=== PATIENT | female | born 1940 | race Caucasian/White ===

== ENCOUNTER → 2018-01-25 | Outpatient (CLI) | payer OTHER, MEDICARE ==
[~2018-01-25] MED LIST: ALENDRONATE SOD70 MG PO; AMLODIPINE BESYL5 MG PO; CHILDREN'S ASPIRIN PO; FENOFIBRATE145 MG PO; FUROSEMIDE40 MG PO; GABAPENTIN300 MG PO; GLIPIZIDE5 MG PO; JANUMET 50-1,01 EACH PO; KOMBIGLYZE XR1 EAC2 PO; LANTUS100 UNITS/ SQ; LEVOTHYROXINE125 MCG PO; METOPROLOL SUCC50 MG PO; NABUMETONE750 MG PO; OMEPRAZOLE40 MG PO; [UNRECOGNIZED DRUG - OTHER] PO
[2018-01-25 15:50] LABS: BASOPHILS # (AUTO) 0.1 (0.0-0.1); BASOPHILS % 0.9 % (0.0-1.0); EOSINOPHILS # (AUTO) 0.1 (0.0-0.4); EOSINOPHILS % 0.5 % (0.0-6.0); HEMATOCRIT 39.4 % (34.2-44.1); HEMOGLOBIN 13.7 g/dL (12.0-16.0); LYMPHOCYTES # (AUTO) 1.4 (1.0-3.2); LYMPHOCYTES % 11.7 % (18.0-39.1); MEAN CORPUSCULAR HEMOGLOBIN 28.4 pg (28-32); MEAN CORPUSCULAR HGB CONC 34.8 g/dL (31-35); MEAN CORPUSCULAR VOLUME 81.6 fL (81-99); MONOCYTES % 8.3 % (4.4-11.3); NEUTROPHILS # (AUTO) 8.4 (2.1-6.9); NEUTROPHILS % 69.1 % (38.7-80.0); PLATELET COUNT 220 x10e3/uL (140-360); RED BLOOD COUNT 4.83 x10e6/uL (3.6-5.1)
--- OUTSIDE RECORDS SUMMARY | 2018-01-26 07:36 | XMS REPORT | Summary of Care ---
Author Author Namita Gomez M.A. 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) Status: Active Obstructive sleep apnea (327.23, G47.33) Status: Active BPPV (benign paroxysmal positional vertigo) (386.11, H81.10) Status: Active Tongue pain (529.6, K14.6) Status: Active Post-nasal drip (784.91, R09.82) Status: Active Limb pain (729.5, M79.609) Status: Active Acute back pain with sciatica (724.3, M54.40) Status: Active Medications Name Dates Details Tricor TABS Active Cristian Low Dose 81 MG Oral Tablet Chewable * Refills: 0 Active GlipiZIDE 5 MG Oral Tablet * Refills: 0 Active AmLODIPine Besylate 5 MG Oral Tablet * Refills: 0 Active Lantus SOLN * Refills: 0 Active Levothyroxine Sodium 125 MCG Oral Tablet * Refills: 0 Active Metoprolol Tartrate 50 MG Oral Tablet * Refills: 0 Active Janumet 50-1000 MG Oral Tablet * Refills: 0 Active Dexamethasone 0.1 % SOLN * Refills: 0 Active Flonase SUSP * Refills: 0 Active Mometasone Furoate SUSP * Refills: 0 Active Gabapentin 300 MG Oral Capsule TAKE 1 CAPSULE 3 TIMES DAILY * Quantity: 90 Refills: 1 GISELLE ALLEN M.D. * Start : 14-Dec-2016 Active Fluticasone Propionate 50 MCG/ACT Nasal Suspension INSTILL 2 SPRAYS IN EACH NOSTRIL EVERY DAY * Quantity: 1 Refills: 6 GISELLE ALLEN M.D. * Start : 27-Jun-2017 Active 9.9 ML Bottle Allergies and Adverse Reactions Name Dates Details Codeine Derivatives (Allergy) Status: Active Darvocet-N 50 TABS (Allergy) Status: Active Keflex TABS (Allergy) Status: Active sevoflurane (Allergy) Status: Active Singulair (Allergy) Status: Active tramadol (Allergy) Status: Active Past Medical History Name Dates Details History of arthritis (V13.4, Z87.39) Status: Resolved History of Chronic fatigue (780.79, R53.82) Status: Resolved History of Depressive disorder (311, F32.9) Status: Resolved History of diabetes mellitus (V12.29, Z86.39) Status: Resolved History of hypertension (V12.59, Z86.79) Status: Resolved History of thyroid disease (V12.29, Z86.39) Status: Resolved Procedures Procedure Dates Details [U] XRAY TIBIA FIBULA 2 VWS RIGHT [id number] Date: 18-Oct-2017 History of Bladder Surgery Completed History of Rotator Cuff Repair Completed History of Hernia Repair Completed Immunization Name Dates Details Immunizations not documented Family History Name Dates Details Family history of Allergy (995.3, T78.40XA) Comments: Family History Status: Active Social History Name Dates Details - Status: Name Dates Details Never smoker Vital Signs Date Test Result Details [id number] Height 59 in Status: Weight 158 lb Status: Body Mass Index Calculated 31.91 kg/m2 Status: Body Surface Area Calculated 1.67 m2 Status: Results Date Description Value Details [id number] [U] XRAY TIBIA FIBULA 2 VWS RIGHT [id number] XR TIBIA FIBULA 2 VWS RIGHT Images acquired, not reported on this accession number. [id number] [U] XRAY SPINE LUMBOSACRAL 2 OR 3 VWS [id number] XR SPINE LUMBOSACRAL 2 OR 3 VWS Images acquired, not reported on this accession number. Plan of Care Name Dates Details Planned Observations Planned Goals not documented Planned Encounters Pain Management Referral Appointment; MAHNAZ HENDERSON M.D. On: 28-Oct-2017 14:00 Instructions Name Dates Details Instructions not documented Encounters Appointment; GISELLE ALLEN M.D. Encounter Diagnosis: Problem not documented On: 26-Oct-2016 8:15 Appointment; GISELLE ALLEN M.D. Encounter Diagnosis: Problem not documented On: 12-Nov-2016 13:30 Appointment; MAHNAZ HENDERSON M.D. Encounter Diagnosis: Problem not documented On: 19-Oct-2017 10:15 Appointment; MAHNAZ HENDERSON M.D. Encounter Diagnosis: Problem not documented On: 28-Oct-2017 14:00
== END ==
LOC: RAD 05:00 → OR 01-26 07:32 → EDSTATUS 01-26 08:30
PROVIDERS: ATTEND Internal Medicine Gastroenterology
DX: Z01.818 Encounter for other preprocedural examination (principal); Z53.8 Procedure and treatment not carried out for other reasons; R73.9 Hyperglycemia, unspecified
CPT/HCPCS: 36415; 85025; 93005

== ENCOUNTER 2018-01-26 08:03 | Emergency (ER) | payer OTHER, MEDICARE ==
[~2018-01-26] VITALS: Ht 152.4 cm; Wt 64.0 kg
[2018-01-26] MEDS ORDERED: SODIUM CHLORIDE 0.9% 1000ML 1,000 ML IV ONE (08:15)
[2018-01-26] MEDS ORDERED: INSULIN REGULAR, HUMAN 100 UNIT/1 ML 3ML VIAL IV ONE (08:30)
[2018-01-26] MEDS ORDERED: ENALAPRILAT IV INJ 1.25 MG/ML VIAL IV STA (08:37)
[2018-01-26] MEDS ORDERED: KETOROLAC TROMETHAMINE 30 MG/ML VIAL IV STA (08:37)
[2018-01-26 08:51] LABS: ANION GAP 19.3 mmol/L (8-16); BLOOD UREA NITROGEN 18 mg/dL (7-26); BUN/CREATININE RATIO 22 (6-25); CALCIUM 9.5 mg/dL (8.4-10.2); CARBON DIOXIDE 21 mmol/L (22-29); CHLORIDE 98 mmol/L (98-107); CREATININE, SERUM 0.82 mg/dL (0.57-1.11); EST GLOMERULAR FILTRATION RATE > 60 ML/MIN (60-); POTASSIUM 4.3 mmol/L (3.5-5.1); SODIUM 134 mmol/L (136-145)
[2018-01-26 08:53] LABS: GLUCOSE 527 mg/dL (74-118)
--- NOTE | 2018-01-26 10:06 | Diagnostic Imaging Report ---
PROCEDURE:HIP RIGHT 2-3 VW (+/- PELVIS) TECHNIQUE:AP pelvis and single cone-down views of the right hip. INDICATION:Pain without specific mention of trauma COMPARISON:None. FINDINGS:Joint space narrowing of both hips is present. No lytic or blastic process identified. No fracture or dislocation. There is vascular calcification. Pelvic phleboliths are present. CONCLUSION:Joint space narrowing of both hips. Tyler Salcido D.O. Dictated by: Tyler Salcido D.O. on 01/26/2018 at 10:08 Electronically approved by: Tyler Salcido D.O. on 01/26/2018 at 10:08
== END 2018-01-26 10:54 | disposition home or self-care (01) ==
LOC: ER 08:10
DX: E11.65 Type 2 diabetes mellitus with hyperglycemia (principal); M16.0 Bilateral primary osteoarthritis of hip; M47.816 Spondylosis without myelopathy or radiculopathy, lumbar region; I10 Essential (primary) hypertension; E03.9 Hypothyroidism, unspecified; I25.10 Atherosclerotic heart disease of native coronary artery without angina pectoris; K21.9 Gastro-esophageal reflux disease without esophagitis; K44.9 Diaphragmatic hernia without obstruction or gangrene; M54.9 Dorsalgia, unspecified; G89.29 Other chronic pain; R06.81 Apnea, not elsewhere classified; H91.93 Unspecified hearing loss, bilateral; Z85.118 Personal history of other malignant neoplasm of bronchus and lung; Z95.1 Presence of aortocoronary bypass graft; Z79.82 Long term (current) use of aspirin; Z79.4 Long term (current) use of insulin
CPT/HCPCS: 36415; 73502; 80048; 82948; 99284; J1885; J7030

== ENCOUNTER → 2018-02-02 | Day surgery (SDC) | payer OTHER, MEDICARE ==
[~2018-02-02] MED LIST changes: +FENTANYL CITRATE/PF 100MCG/2 ML INJ ONE; +MIDAZOLAM HCL 2 MG/2 ML VIAL ONE; +PROPOFOL IV EMULSION 10 MG/ML 50 ML VIAL ONE
--- OUTSIDE RECORDS SUMMARY | 2018-02-02 06:04 | XMS REPORT | Continuity of Care Document ---
Author Author [facility] Organization [facility] Address [address] [place] [address] [place] [address] Phone Unavailable Care Team Providers Care Crisis Clinician Name Role Phone NO, PCP PCP Unavailable Insurance Providers Guarantor Quan Fernandez Address [address] [place] [address] Email PTDECLINED Payer [employer] H[employer] Policy Number [id number] Subscriber's Name Quan Fernandez Relationship 18 Self / Same As Patient Group Number [id number] Group Name [employer] Effective Date 11 Payer Medicare A & B Policy Number [id number] Subscriber's Name Quan Fernandez Relationship 18 Self / Same As Patient Group Number [id number] Group Name [employer] Effective Date 07 Advance Directives Directive Response Recorded Date/Time Does the patient have an advance directive? Yes 06/10/14 10:09am If yes, is advance directive on file with [facility]? No 05/01/08 11:17am If not on file with [facility] will patient provide a copy? Yes 01/25/18 2:19pm Problems No problem information available. Medications Current Home Medications Medication Dose Units Route Directions Days Qty Instructions Start Date Alendronate Sodium 70 Mg Tablet 70 Mg Oral Weekly Amlodipine Besylate 5 Mg Tablet 5 Mg Oral Daily 30 Tab Children's Aspirin 81 Mg Oral Daily Fenofibrate Nanocrystallized (Fenofibrate) 145 Mg Tablet 1 Tab Oral Daily Furosemide 40 Mg Tablet 20 Mg Oral Daily 30 Tab Gabapentin 300 Mg Capsule 300 Mg Oral Three Times A Day 60 Cap Glipizide 5 Mg Tablet 5 Mg Oral Daily Insulin Glargine (Lantus) 100 Units/Ml Ml 36 Units Sub-Q Daily Levothyroxine Sodium 125 Mcg Tablet 137 Mcg Oral Daily Metoprolol Succinate 50 Mg Tab.er.24h 50 Mg Oral Twice A Day Nabumetone 750 Mg Tablet 1 Tab Oral Twice A Day Omeprazole 40 Mg Capsule.dr 40 Mg Oral Twice A Day Sitagliptin Phos/Metformin Hcl (Janumet 50-1,000 Mg Tablet) 1 Each Tablet 1 Tab Oral Twice A Day Past Home Medications Medication Directions Ordered Status Saxagliptin Hcl/Metformin Hcl (Kombiglyze Xr 2.5-1,000 Mg Tab) 1 Each Tbmp.24hr , 2.5-1000 Mg Oral Daily Discontinued Tricore , Oral Discontinued Social History No social history information available. Hospital Discharge Instructions No hospital discharge instruction information available. Plan of Care Discharge Date 01/26/18 10:54am Disposition HOME, SELF-CARE Condition at Discharge Stable Instructions/Education Provided Hyperglycemia Forms Provided Work/School Excuse Prescriptions See Medication Section Referrals SNEHA COPELAND MD Address: [address] [place] [id number] KERRY GARNICA MD Address: [address] [place] [id number] Additional Instructions/Education follow up with pcp take home meds as directed call dr. Garnica to reschedule EGD Functional Status No functional status information available. Allergies, Adverse Reactions, Alerts Allergen Type Severity Reaction Status Last Updated Codeine Allergy Intermediate HYPOTENTION Active 06/21/14 Cephalexin Allergy Mild RASH Active 06/21/14 Tramadol Adverse Reaction Mild DIZZINESS, N/V Active 06/24/14 Levofloxacin Allergy Severe CAN'T BREATHE Active 06/24/14 DARVOCET Adverse Reaction Mild DIZZINESS, N/V Active 06/24/14 SINGULAR Allergy Severe TONGUE SWELLS, CAN'T SWALLOW, CAN'T BREATH Active 06/24/14 Immunizations No immunization information available. Vital Signs Acute Vital Signs Vital Response Date/Time Height 5 ft 0 in 01/26/2018 8:06am Weight 141 lb 01/26/2018 8:06am Body Mass Index 27.5 kg/m^2 01/26/2018 8:06am Results Laboratory Results Test Name Result Units Flags Reference Collection Date/Time Result Date/ Time Comments White Blood Count 12.12 x10e3/uL H 4.8-10.8 01/25/2018 3:43pm 2017 3:51pm Red Blood Count 4.83 x10e6/uL 3.6-5.1 01/25/2018 3:43pm 01/25/2018 3: 51pm Hemoglobin 13.7 g/dL 12.0-16.0 01/25/2018 3:43pm 01/25/2018 3:51pm Hematocrit 39.4 % 34.2-44.1 01/25/2018 3:43pm 01/25/2018 3:51pm Mean Corpuscular Volume 81.6 fL 81-99 01/25/2018 3:43pm 01/25/2018 3: 51pm Mean Corpuscular Hemoglobin 28.4 pg 28-32 01/25/2018 3:43pm 01/25/2018 3:51pm Mean Corpuscular Hemoglobin Concent 34.8 g/dL 31-35 01/25/2018 3:43pm 01/25/2018 3:51pm Red Cell Distribution Width 15.0 % H 11.7-14.4 01/25/2018 3:43pm 2017 3:51pm Platelet Count 220 x10e3/uL 140-360 01/25/2018 3:43pm 01/25/2018 3: 51pm Neutrophils (%) (Auto) 69.1 % 38.7-80.0 01/25/2018 3:43pm 01/25/2018 3: 51pm Lymphocytes (%) (Auto) 11.7 % L 18.0-39.1 01/25/2018 3:43pm 01/25/2018 3 :51pm Monocytes (%) (Auto) 8.3 % 4.4-11.3 01/25/2018 3:43pm 01/25/2018 3: 51pm Eosinophils (%) (Auto) 0.5 % 0.0-6.0 01/25/2018 3:43pm 01/25/2018 3: 51pm Basophils (%) (Auto) 0.9 % 0.0-1.0 01/25/2018 3:43pm 01/25/2018 3:51pm IM GRANULOCYTES % 9.5 % H 0.0-1.0 01/25/2018 3:43pm 01/25/2018 3:51pm Neutrophils # (Auto) 8.4 H 2.1-6.9 01/25/2018 3:43pm 01/25/2018 3: 51pm Lymphocytes # (Auto) 1.4 1.0-3.2 01/25/2018 3:43pm 01/25/2018 3:51pm Monocytes # (Auto) 1.0 H 0.2-0.8 01/25/2018 3:43pm 01/25/2018 3:51pm Eosinophils # (Auto) 0.1 0.0-0.4 01/25/2018 3:43pm 01/25/2018 3:51pm Basophils # (Auto) 0.1 0.0-0.1 01/25/2018 3:43pm 01/25/2018 3:51pm Absolute Immature Granulocyte (auto 1.15 x10e3/uL H 0-0.1 01/25/2018 3: 43pm 01/25/2018 3:51pm Sodium Level 134 mmol/L L 136-145 01/26/2018 8:20am 01/26/2018 8:53am Potassium Level 4.3 mmol/L 3.5-5.1 01/26/2018 8:2001/26/2018 8:53am Chloride Level 98 mmol/L 98-107 01/26/2018 8:2001/26/2018 8:53am Carbon Dioxide Level 21 mmol/L L 22-29 01/26/2018 8:2001/26/2018 8: 53am Anion Gap 19.3 mmol/L H 8-16 01/26/2018 8:20am 01/26/2018 8:53am Blood Urea Nitrogen 18 mg/dL 7-26 01/26/2018 8:2001/26/2018 8:53am Creatinine 0.82 mg/dL 0.57-1.11 01/26/2018 8:2001/26/2018 8:53am BUN/Creatinine Ratio 22 6-25 01/26/2018 8:20am 01/26/2018 8:53am Estimat Glomerular Filtration Rate > 60 ML/MIN 60- 01/26/2018 8:20am 8:53am Ranges were taken from the National Kidney Disease Education Program and the National Kid[employer] Foundation literature. Reference ranges: 60 or greater: Normal 16-59 (for 3 consecutive months): Chronic kidney disease 15 or less: Kidney failure Glucose Level 527 mg/dL *H 74-118 01/26/2018 8:20am 01/26/2018 8:53am Results called to RADHA REDMOND RN at 0852 on 01/26/18 by Mario sAif. RB OK. This test has been rerun and double checked for accuracy. Calcium Level 9.5 mg/dL 8.4-10.2 01/26/2018 8:20am 01/26/2018 8:53am Bedside Glucose 388 mg/dL H 70-120 01/26/2018 9:28am 01/26/2018 9:35am Meter ID: [id number] Procedures Procedure Status Date Provider(s) EGD with biopsy Active 01/26/18 KERRY GARNICA MD Encounters Encounter Location Arrival/Admit Date Discharge/Depart Date Attending Provider Departed Emergency Room [facility] 01/26/18 8:10am 10:54am KARLY GAR MD Registered Surgical Day Care [facility] Patients [facility] 01/26/18 7:32am KERRY GARNICA MD
--- OUTSIDE RECORDS SUMMARY | 2018-02-02 06:04 | XMS REPORT ---
Author Author [facility] Address Unknown Phone Unavailable Care Team Providers Care Rd Manager Name Role Phone KARLY GAR Unavailable Unavailable Problems This patient has no known problems. Allergies, Adverse Reactions, Alerts This patient has no known allergies or adverse reactions. Medications This patient has no known medications. Results Test Description Test Time Test Comments Text Results Atomic Results Result Comments HIP RIGHT 2-3 VW (+/- PELVIS) [place] [id number] Patient Name: QAUN HUDSON MR #: [id number] : 1940 Age/Sex: 77/F Req #: [id number] Adm Physician: Ordered by: KARLY GAR MD Report #: [id number] Location: ER Room/Bed: Procedure: [id number] DX/HIP RIGHT 2-3 VW (+/- PELVIS) Exam Date: Exam Time: REPORT STATUS: Signed PROCEDURE: HIP RIGHT 2-3 VW (+/- PELVIS) TECHNIQUE: AP pelvis and single cone-down views of the right hip. INDICATION: Pain without specific mention of trauma COMPARISON: None. FINDINGS: Joint space narrowing of both hips is present. No lytic or blastic process identified. No fracture or dislocation. There is vascular calcification. Pelvic phleboliths are present. CONCLUSION: Joint space narrowing of both hips. Dru Nieves D.O. Dictated by: Dru Nieves D.O. on 01/26/2018 at 10:08 Electronically approved by: Dru Nieves D.O. on 01/26/2018 at 10:08 Dictated By: DRU NIEVES DO 1008 Transcribed By: BRIANNA on 01/26/18 1008 COPY TO: KARLY GAR MD
== END | disposition home or self-care (01) ==
LOC: OR 06:02
PROVIDERS: ATTEND Internal Medicine Gastroenterology
DX: K29.50 Unspecified chronic gastritis without bleeding (principal); K21.0 Gastro-esophageal reflux disease with esophagitis; K44.9 Diaphragmatic hernia without obstruction or gangrene; H91.90 Unspecified hearing loss, unspecified ear; G47.33 Obstructive sleep apnea (adult) (pediatric); I10 Essential (primary) hypertension; I25.810 Atherosclerosis of coronary artery bypass graft(s) without angina pectoris; E11.9 Type 2 diabetes mellitus without complications; E03.9 Hypothyroidism, unspecified; F32.9 Major depressive disorder, single episode, unspecified; Z88.1 Allergy status to other antibiotic agents; Z88.5 Allergy status to narcotic agent; Z79.82 Long term (current) use of aspirin; Z79.4 Long term (current) use of insulin; Z68.30 Body mass index [BMI] 30.0-30.9, adult
CPT/HCPCS: 43239; J2250